=== PATIENT | male | born 1985 | race Caucasian/White ===

== ENCOUNTER 2020-07-31 08:11 | Emergency (ER) | payer OTHER ==
[2020-07-31] MEDS ORDERED: Ketorolac 30 MG/ML SDV IVPUSH STA (08:31)
[2020-07-31] MEDS ORDERED: Ketorolac 30 MG/ML SDV ONE (08:32)
[2020-07-31] MEDS ORDERED: Iopamidol 755 Mg/ML 100 ML Bottle IV ONE (08:35)
[2020-07-31] MEDS ORDERED: Sodium Chloride 0.9% 1,000 ML IV SCH (08:45)
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
== END 2020-07-31 12:45 | disposition home or self-care (01) ==
LOC: FB.ED 08:11
DX: S42.391A Other fracture of shaft of right humerus, initial encounter for closed fracture (principal); Z88.0 Allergy status to penicillin; V29.9XXA Motorcycle rider (driver) (passenger) injured in unspecified traffic accident, initial encounter; Y93.55 Activity, bike riding
CPT/HCPCS: 36415; 70450; 72125; 72131; 73030-RT; 73630-RT; 74177; 80053; 80307; 85025; 85610; 93010; 96374; 99284; 99284-25; J1885; J7030; Q9967